=== PATIENT | male | born 1960 | race African-American/Black ===

== ENCOUNTER 2018-02-26 10:25 | Emergency (ER) | payer MEDICAID, OTHER ==
[~2018-02-26] VITALS: Ht 190.5 cm; Wt 138.6 kg
[~2018-02-26 10:25] MED LIST: ALBU8.5H3 IH
[2018-02-26] MEDS ORDERED: ASPI81 PO (10:32)
[2018-02-26] MEDS ORDERED: METHOCARBAMOL 500 MG TABLET PO ONE (12:30)
[2018-02-26] MEDS ORDERED: IBUPROFEN 800 MG TABLET PO ONE (12:30)
[2018-02-26 14:34] VITALS: BP 136/91
== END 2018-02-26 14:35 | disposition home or self-care (01) ==
LOC: EMS 10:32
DX: S62.306A Unspecified fracture of fifth metacarpal bone, right hand, initial encounter for closed fracture (principal); S62.524A Nondisplaced fracture of distal phalanx of right thumb, initial encounter for closed fracture; S16.1XXA Strain of muscle, fascia and tendon at neck level, initial encounter; J45.909 Unspecified asthma, uncomplicated; F17.210 Nicotine dependence, cigarettes, uncomplicated; Z88.0 Allergy status to penicillin; W01.0XXA Fall on same level from slipping, tripping and stumbling without subsequent striking against object, initial encounter; Y93.89 Activity, other specified; Y92.89 Other specified places as the place of occurrence of the external cause; Y99.8 Other external cause status
CPT/HCPCS: 99284